=== PATIENT | male | born 1970 | race Caucasian/White ===

== ENCOUNTER 2017-03-12 13:37 | Emergency (ER) | payer OTHER ==
[~2017-03-12] VITALS: Ht 172.7 cm; Wt 83.0 kg
[~2017-03-12 13:37] MED LIST: ASPI-119 PO; BLOOD GLUCOSE T1 TES; GEMF600T PO; GLIP5TAB8 PO; LEVO50TA4 PO; METF500T PO; [UNRECOGNIZED DRUG - CODE] TOPICAL; [UNRECOGNIZED DRUG - SUPPLY]
[2017-03-12 13:40] VITALS: BP 146/90; PULSE 97; RESP 20; TEMP 97.5; O2SAT 96
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
--- NOTE | 2017-03-12 17:50 | RADRPT ---
EXAM DATE/TIME: 03/12/2017 17:10 [facility] COMPARISON: No previous studies available for comparison. INDICATIONS : Bilateral leg swelling. MEDICAL HISTORY : Hypothyroidism. Glasses. Anticoagulant therapy. Chest pain. Ulcer. Pancreatitis. Diabetes. SURGICAL HISTORY : Bilateral lower extremity below knee amputation. ENCOUNTER: Initial ACUITY: 1 day PAIN SCORE: 2/10 LOCATION: Bilateral legs. TECHNIQUE: Venous ultrasound of the left and right leg was performed from the inguinal ligament to the proximal calf. Real-time, color Doppler and spectral tracing, compression and augmentation techniques were us ed. FINDINGS: RIGHT LEG: There is normal compressibility of the deep venous system from the inguinal region to the proximal ca lf. No echogenic clot is seen in the lumen of the common femoral, femoral, and popliteal veins. The re is a normal response of the venous system to proximal and distal augmentation and respiration. LEFT LEG: There is normal compressibility of the deep venous system from the inguinal region to the proximal ca lf. No echogenic clot is seen in the lumen of the common femoral, femoral, popliteal veins. There is a normal response of the venous system to proximal and distal augmentation and respiration. CONCLUSION: Negative exam with no evidence of deep venous thrombosis. Delgado Gomes MD on March 12, 2017 at 17:45 Board Certified Radiologist. This report was verified electronically.
== END 2017-03-12 18:15 | disposition home or self-care (01) ==
LOC: NEPD 13:37
DX: L53.9 Erythematous condition, unspecified (principal); Z89.512 Acquired absence of left leg below knee; Z89.511 Acquired absence of right leg below knee
CPT/HCPCS: 93970; 99284